=== PATIENT | female | born 1950 | race Caucasian/White ===

== ENCOUNTER 2017-05-04 15:25 | Emergency (ER) | payer OTHER ==
[~2017-05-04] VITALS: Ht 154.9 cm; Wt 92.0 kg
[~2017-05-04 15:25] MED LIST: ASPI-94 PO; CALCCHW25 PO; EFFE75CA PO; LEVO100T4 PO; LOSA25 PO; METF500 PO; TAB-TAB PO; ZOCO40TA PO
[2017-05-04 15:31] VITALS: BP 177/77; PULSE 85; RESP 18; TEMP 98.3; O2SAT 96
[2017-05-04] MEDS ORDERED: ASPI81CH37 CHEW (15:52)
[2017-05-04] MEDS ORDERED: METF500T4 PO (15:52)
[2017-05-04] MEDS ORDERED: LEVO150T7 PO (15:52)
[2017-05-04] MEDS ORDERED: MONT10TA4 PO (15:52)
[2017-05-04] MEDS ORDERED: ATOR40TA16 PO (15:52)
[2017-05-04] MEDS ORDERED: EFFE150C PO (15:52)
[2017-05-04] MEDS ORDERED: LOSA100T PO (15:52)
[2017-05-04] MEDS ORDERED: CALC1TAB12 PO (15:52)
[2017-05-04] MEDS ORDERED: PANT40TA3 PO (15:52)
[2017-05-04] MEDS ORDERED: ONETAB26 (15:52)
[2017-05-04] MEDS ORDERED: COQ-30CA2 (15:52)
[2017-05-04] MEDS ORDERED: SODIUM CHLOR 0.9% 1000 ML INJ 1,000 ML IV SCH (16:09)
[2017-05-04] MEDS ORDERED: SODIUM CHLORIDE 0.9% FLUSH 10 ML FLUSH IV FLUSH PRN (16:15)
[2017-05-04] MEDS ORDERED: MORPHINE SULFATE 4 MG/ML INJ IV PUSH ONE (16:15)
[2017-05-04] MEDS ORDERED: ONDANSETRON HCL 4 MG/2 ML VIAL IVP ONE (16:15)
[2017-05-04 16:49] VITALS: O2SAT 98
--- NOTE | 2017-05-04 16:52 | PD ---
HPI Chief Complaint: GI Complaint Time Seen by Provider: 16:09 Travel History International Travel<30 days: No Contact w/Intl Traveler<30days: No Traveled to known affect area: No History of Present Illness HPI Patient is a 67 year old female who comes in complaining of lower abdominal pain. She says that she ate some fish for lunch on Wednesday and felt like she had an upset stomach afterwards. She says Wednesday she started to have severe pain to the lower part of her abdomen. She says she is having small soft bowel movements that are cough. Color. She denies fever or chills. She denies nausea or vomiting, but says she has not been very hungry. She denies any dysuria, but says she has pain to her abdomen when she urinates. She denies any vaginal discharge. PFSH Past Medical History Asthma: Yes Blood Disorders: No Anxiety: Yes Depression: No Cardiovascular Problems: Yes High Cholesterol: Yes Diabetes: Yes Patient Takes Glucophage: Yes Diminished Hearing: No Endocrine: Yes Gastrointestinal Disorders: Yes (INCONTINENT OF URINE) GERD: Yes Genitourinary: No Hypertension: Yes Immune Disorder: No Musculoskeletal: Yes Neurologic: No Psychiatric: Yes Reproductive: No Respiratory: Yes Radiation Therapy: Yes (TTO THYROID FOR GRAVES DISEASE) Thyroid Disease: Yes (GRAVES DISEASE) ?: Not Menopausal: Yes : 0 Past Surgical History Tonsillectomy: Yes Other Surgery: Yes (TONSILECTOMY) Social History Alcohol Use: No Tobacco Use: No Substance Use: No Allergies-Medications (Allergen,Severity, Reaction): Coded Allergies: penicillin G (Unverified Allergy, Severe, RASH, 05/04/17) Reported Meds & Prescriptions Reported Meds & Active Scripts Active Reported Losartan (Losartan Potassium) 100 Mg Tab 100 Mg PO DAILY Atorvastatin (Atorvastatin Calcium) 40 Mg Tab 40 Mg PO HS Montelukast (Montelukast Sodium) 10 Mg Tab 10 Mg PO HS Metformin ER (Metformin HCl) 500 Mg Benitez 500 Mg PO DAILY With evening meal Pantoprazole (Pantoprazole Sodium) 40 Mg Tab 40 Mg PO DAILY Coq-10 (Coenzyme Q10 (Ubidecarenone)) 30 Mg Cap Calcium 500 +D (Calcium Carbonate-Cholecalciferol) 500-400 Mg-Unit Tab 1 Tab PO BID One Daily Complete (Multivitamin with Minerals) 1 Each Tablet Aspirin Low Dose (Aspirin) 81 Mg Chew 81 Mg CHEW DAILY Effexor XR 24 HR (Venlafaxine HCl) 150 Mg Cap 150 Mg PO DAILY Levothyroxine (Levothyroxine Sodium) 150 Mcg Tab 150 Mcg PO DAILY Review of Systems Except as stated in HPI: all other systems reviewed are Neg General / Constitutional: No: Fever, Chills HENT: No: Headaches, Lightheadedness Cardiovascular: No: Chest Pain or Discomfort Respiratory: No: Shortness of Breath Gastrointestinal: Positive: Abdominal Pain, Constipation, No: Nausea, Vomiting Genitourinary: No: Dysuria Musculoskeletal: No: Edema, Pain Skin: No Rash, No Change in Pigmentation Neurologic: No: Weakness, Dizziness Physical Exam Narrative GENERAL: Awake and alert, in no acute distress. SKIN: Focused skin assessment warm/dry. HEAD: Atraumatic. Normocephalic. EYES: Pupils equal and round. No scleral icterus. ENT: Mucous membranes pink and moist. NECK: Trachea midline. No JVD. CARDIOVASCULAR: Regular rate and rhythm. No murmur appreciated. RESPIRATORY: No accessory muscle use. Clear to auscultation. Breath sounds equal bilaterally. GASTROINTESTINAL: Abdomen soft, nondistended. Tender to palpation of the RUQ and RLQ. No rebound or guarding. No CVA tenderness. MUSCULOSKELETAL: No obvious deformities. No clubbing. No cyanosis. No edema. NEUROLOGICAL: Awake and alert. No obvious cranial nerve deficits. Motor grossly within normal limits. Normal speech. PSYCHIATRIC: Appropriate mood and affect; insight and judgment normal. Data Data Last Documented VS Vital Signs Date Time Temp Pulse Resp B/P (MAP) Pulse Ox O2 Delivery O2 Flow Rate FiO2 05/04/17 16:49 98 Room Air 05/04/17 15:31 98.3 85 18 177/77 (110) Orders Orders Complete Blood Count With Diff (05/04/17 16:09) Comprehensive Metabolic Panel (05/04/17 16:09) Lipase (05/04/17 16:09) Lactic Acid (05/04/17 16:09) Prothrombin Time / Inr (Pt) (05/04/17 16:09) Act Partial Throm Time (Ptt) (05/04/17 16:09) Urinalysis - C+S If Indicated (05/04/17 16:09) Ct Abd/Pel W Iv Contrast(Rout) (05/04/17 16:09) Iv Access Insert/Monitor (05/04/17 16:09) Ecg Monitoring (05/04/17 16:09) Oximetry (05/04/17 16:09) Morphine Inj (Morphine Inj) (05/04/17 16:15) Ondansetron Inj (Zofran Inj) (05/04/17 16:15) Sodium Chlor 0.9% 1000 Ml Inj (Ns 1000 M (05/04/17 16:09) Sodium Chloride 0.9% Flush (Ns Flush) (05/04/17 16:15) Urine Culture (05/04/17 16:37) Iohexol 350 Inj (Omnipaque 350 Inj) (05/04/17 17:53) Acetamin-Hydrocod 325-5 Mg ([place] 5-325 (05/04/17 18:45) Labs Laboratory Tests Test 05/04/17 16:37 05/04/17 16:42 White Blood Count 9.2 TH/MM3 Red Blood Count 4.75 MIL/MM3 Hemoglobin 13.6 GM/DL Hematocrit 39.6 % Mean Corpuscular Volume 83.3 FL Mean Corpuscular Hemoglobin 28.6 PG Mean Corpuscular Hemoglobin Concent 34.3 % Red Cell Distribution Width 13.0 % Platelet Count 184 TH/MM3 Mean Platelet Volume 10.7 FL Neutrophils (%) (Auto) 72.9 % Lymphocytes (%) (Auto) 19.8 % Monocytes (%) (Auto) 5.6 % Eosinophils (%) (Auto) 1.2 % Basophils (%) (Auto) 0.5 % Neutrophils # (Auto) 6.8 TH/MM3 Lymphocytes # (Auto) 1.8 TH/MM3 Monocytes # (Auto) 0.5 TH/MM3 Eosinophils # (Auto) 0.1 TH/MM3 Basophils # (Auto) 0.0 TH/MM3 CBC Comment DIFF FINAL Differential Comment Prothrombin Time 10.7 SEC Prothromb Time International Ratio 1.0 RATIO Activated Partial Thromboplast Time 27.8 SEC Urine Collection Type CLEAN CATCH Urine Color YELLOW Urine Turbidity CLEAR Urine pH 7.0 Urine Specific [place] 1.025 Urine Protein 100 mg/dL Urine Glucose (UA) 250 mg/dL Urine Ketones TRACE mg/dL Urine Occult Blood TRACE Urine Nitrite NEG Urine Bilirubin NEG Urine Leukocyte Esterase TRACE Urine RBC 0-3 /hpf Urine WBC 20-24 /hpf Urine WBC Clumps FEW Urine Squamous Epithelial Cells 0-5 /hpf Urine Renal Epithelial Cells 0-5 /hpf Microscopic Urinalysis Comment CULTURE INDICATED Urine Collection Time 16:37 Blood Urea Nitrogen 9 MG/DL Creatinine 0.62 MG/DL Random Glucose 225 MG/DL Total Protein 7.1 GM/DL Albumin 3.3 GM/DL Calcium Level 8.6 MG/DL Alkaline Phosphatase 91 U/L Aspartate Amino Transf (AST/SGOT) 12 U/L Alanine Aminotransferase (ALT/SGPT) 19 U/L Total Bilirubin 0.9 MG/DL Sodium Level 136 MEQ/L Potassium Level 3.7 MEQ/L Chloride Level 103 MEQ/L Carbon Dioxide Level 26.0 MEQ/L Anion Gap 7 MEQ/L Estimat Glomerular Filtration Rate 95 ML/MIN Lipase 69 U/L Lactic Acid Level 1.0 mmol/L MDM Medical Decision Making Medical Screen Exam Complete: Yes Emergency Medical Condition: Yes Medical Record Reviewed: Yes Differential Diagnosis UTI versus appendicitis versus colitis versus diverticulitis Narrative Course Patient is a 67-year-old female comes in complaining of lower abdominal pain. Exam shows right-sided abdominal tenderness on palpation. IV established, labs sent. White blood cell count is within normal limits, creatinine is within normal limits. Urinalysis shows evidence of UTI. Patient given IV fluids, pain medicine, Zofran. CT abdomen and pelvis performed shows evidence of diverticulitis. Patient did feel better after morphine, but started to have some pain again. She is given a Lortab. She'll be discharged with prescriptions for Cipro and Flagyl which will also cover her UTI. Given a prescription for Lortab. She is advised to avoid alcohol while taking the antibiotics. She is advised follow-up with her doctor. Advised to return to the ED as needed for any worsening symptoms. Diagnosis Primary Impression: Diverticulitis Qualified Codes: K57.32 - Diverticulitis of large intestine without perforation or abscess without bleeding Additional Impression: Urinary tract infection Qualified Codes: N30.00 - Acute cystitis without hematuria Patient Instructions: Diverticulitis (ED), General Instructions, Urinary Tract Infection in Women (ED) Additional Instructions: Take all of your antibiotics. Do not drink alcohol while taking antibiotics. Drink plenty of fluids. Take pain medicine as needed. Follow-up with your doctor. Return to the ED as needed for any worsening symptoms. Scripts Hydrocodone-Acetaminophen (Lortab) 5-325 Mg Tab 1 TAB PO Q6H Y for PAIN, #12 TAB 0 Refills Prov: Jennifer Herman MD 05/04/17 Ciprofloxacin (Cipro) 500 Mg Tab 500 MG PO BID for Infection for 7 Days, TAB 0 Refills Prov: Jennifer Herman MD 05/04/17 Metronidazole (Flagyl) 500 Mg Tab 500 MG PO TID for Infection for 7 Days, TAB 0 Refills Prov: Jennifer Herman MD 05/04/17 Disposition: 01 DISCHARGE HOME Condition: Stable Jennifer Herman MD May 04, 2017 16:52
[2017-05-04 16:53] LABS: GLUCOSE,URINE 250 mg/dL (NEG); KETONE, URINE TRACE mg/dL (NEG); NITRITE,URINE NEG (NEG)
[2017-05-04 16:54] LABS: BLOOD, URINE TRACE (NEG)
[2017-05-04 17:04] LABS: CHLORIDE 103 MEQ/L (98-107); POTASSIUM 3.7 MEQ/L (3.5-5.1); SODIUM (NA) 136 MEQ/L (136-145)
[2017-05-04 17:05] LABS: METHOD OF COLLECTION CLEAN CATCH; URINE COLOR YELLOW (YELLW/STRAW)
[2017-05-04 17:06] LABS: RBC, URINE 0-3 /hpf (0-3); SQUAMOUS EPITHELIAL CELL URINE 0-5 /hpf (0-5)
[2017-05-04 17:07] LABS: COMMENT (UR) CULTURE INDICATED; CULTURE IF INDICATED CULTURE INDICATED; RENAL EPITHELIAL CELLS 0-5 /hpf
[2017-05-04 17:08] LABS: ANION GAP 7 MEQ/L (5-15)
[2017-05-04 17:09] LABS: APTT (PATIENT) 27.8 SEC (24.3-30.1); BLOOD UREA NITROGEN 9 MG/DL (7-18); PROTHROMBIN TIME - PATIENT 10.7 SEC (9.8-11.6)
[2017-05-04 17:11] LABS: ALT (GPT) 19 U/L (10-53); AST (GOT) 12 U/L (15-37); GLOMERULAR FILTRATION RATE 95 ML/MIN (>89)
[2017-05-04 17:13] LABS: TOTAL BILIRUBIN ADULT 0.9 MG/DL (0.2-1.0)
[2017-05-04 17:14] LABS: ALKALINE PHOSPHATASE 91 U/L (45-117)
[2017-05-04] MEDS ORDERED: IOHEXOL 350 MG/ML 10 ML VIAL (for RAD DIAG) IVCONTRAST ONE (17:53)
--- NOTE | 2017-05-04 18:05 | RADRPT ---
EXAM DATE/TIME: 05/04/2017 17:49 [facility] COMPARISON: No previous studies available for comparison. INDICATIONS : Diffuse abdominal pain since yesterday. IV CONTRAST: 85 cc Omnipaque 350 (iohexol) IV ORAL CONTRAST: No oral contrast ingested. RADIATION DOSE: 22.19 CTDIvol (mGy) MEDICAL HISTORY : Hypertension. Hyperthyroidism. Hypercholesterolemia. SURGICAL HISTORY : Tonsillectomy. ENCOUNTER: Initial ACUITY: 2 days PAIN SCALE: 4/10 LOCATION: Bilateral abdomen TECHNIQUE: Volumetric scanning of the abdomen and pelvis was performed. Using automated exposure control and adjustment of the mA and/or kV according to patient size, radiation dose was kept as low as reasonably achievable to obtain optimal diagnostic quality images. DICOM format image data is av ailable electronically for review and comparison. FINDINGS: LOWER LUNGS: Clear lungs LIVER: Homogeneous density without lesion. There is no dilation of the biliary tree. No calcifi ed gallstones. Gallbladder seen as a luminal structure wall thickening SPLEEN: Normal size withou t lesion. PANCREAS: Within normal limits. KIDNEYS: Normal in size and shape. There is no stone or hydronephrosis. 2.7 cm cyst upper pole l eft kidney ADRENAL GLANDS: Within normal limits. VASCULAR: There is no aortic aneurysm. BOWEL/MESENTERY: There is long segment proximal to mid sigmoid colon bowel wall thickening and pe ricolonic inflammation in the pericolonic fat. Findings are consistent with colitis most likely diver ticular basis with a few distal descending and proximal sigmoid diverticuli appreciated. ABDOMINAL WALL: Within normal limits. RETROPERITONEUM: There is no lymphadenopathy. BLADDER: No wall thickening or mass. REPRODUCTIVE: Within normal limits. INGUINAL: There is no lymphadenopathy or hernia. MUSCULOSKELETAL: Within normal limits for patient age. Facet arthritic changes lower lumbar spine L5-S1 and L4-5 CONCLUSION: Long segment rostral to mid sigmoid colon colitis with bowel wall thickening and bernie colonic inflammatory change without free air or free fluid or abscess formation. Findings are most co nsistent with diverticulitis. Peterson Santoyo MD on May 04, 2017 at 17:58 Board Certified Radiologist. This report was verified electronically.
[2017-05-04 18:26] LABS: AUTOMATED NEUTROPHIL # 6.8 TH/MM3 (1.8-7.7); BASOPHIL % 0.5 % (0.0-2.0); EOSINOPHIL # 0.1 TH/MM3 (0-0.4); EOSINOPHIL % 1.2 % (0.0-4.0); HEMATOCRIT 39.6 % (35.0-46.0); HEMO FLAGS DIFF FINAL; LYMPH % 19.8 % (9.0-44.0); LYMPHOCYTE # 1.8 TH/MM3 (1.0-4.8); MEAN CELL VOLUME 83.3 FL (80.0-100.0); MEAN CORPUSCULAR HEMOGLOBIN 28.6 PG (27.0-34.0); MEAN CORPUSCULAR HGB CONC 34.3 % (32.0-36.0); MONO % 5.6 % (0.0-8.0); NEUT % 72.9 % (16.0-70.0); PLATELET COUNT 184 TH/MM3 (150-450); RED BLOOD COUNT 4.75 MIL/MM3 (4.00-5.30); WHITE BLOOD COUNT 9.2 TH/MM3 (4.0-11.0)
[2017-05-04] MEDS ORDERED: HYDR-3533 PO (18:44)
[2017-05-04] MEDS ORDERED: METR-1 PO (18:44)
[2017-05-04] MEDS ORDERED: CIPR-9 PO (18:44)
[2017-05-04] MEDS ORDERED: ACETAMINOPHEN/HYDROcodone 325 MG/5 MG TAB PO ONE (18:45)
[2017-05-04 19:24] VITALS: BP 160/70
[2017-05-04 19:25] VITALS: RESP 18
== END 2017-05-04 19:33 | disposition home or self-care (01) ==
LOC: PHED 15:25
DX: K57.32 Diverticulitis of large intestine without perforation or abscess without bleeding (principal); N30.00 Acute cystitis without hematuria; E05.00 Thyrotoxicosis with diffuse goiter without thyrotoxic crisis or storm; E11.9 Type 2 diabetes mellitus without complications; I10 Essential (primary) hypertension; Z88.0 Allergy status to penicillin
CPT/HCPCS: 74177; 80053; 81001; 83605; 83690; 85025; 85610; 85730; 87086; 96374; 96375; 99285; J2270; J2405; J7030; Q9967

== ENCOUNTER → 2017-08-19 | Day surgery (SDC) | payer OTHER ==
[~2017-08-19] VITALS: Ht 152.4 cm; Wt 94.5 kg
[~2017-08-19] MED LIST changes: -ASPI-94 PO; +ASPI81CH6 CHEW; +ATOR40TA16 PO; +ATROPINE SULFATE 1% OPHT SOLN 2 ML BTL ONE; +BALANCED SALT SOLN OPHT IRRIG 15 ML BTL ONE; +CALC1TAB12 PO; -CALCCHW25 PO; +CHLORHEXIDINE GLUCONATE 2 % 1 PACK (2 CLOTHS) TOPICAL PRN; +CIPR-9 PO; +COQ-30CA2; +CYCLOPENTOLATE HCL 1% OPHT SOLN 2 ML BTL ONE; +DEXAMETHASONE SOD PHOS 4 MG/ML VIAL ONE; +DO NOT ADM ANY ANTICOAGULANT DRUGS PRN; +EFFE150C PO; -EFFE75CA PO; +EPINEPHrine HCL (1:1000) 1 MG/ML VIAL ONE; +HYDR-3516 PO; +HYDR-3533 PO; +LACTATED RINGER'S 1000 ML IV PRN; +LANTUS2P; -LEVO100T4 PO; +LEVO150T7 PO; +LOSA100T PO; -LOSA25 PO; -METF500 PO; +METF500T4 PO; +METOPROLOL TARTRATE 25 MG TAB PO PRN; +METR-1 PO; +MONT10TA4 PO; +ONDANSETRON HCL 4 MG/2 ML VIAL IM PRN; +ONDANSETRON HCL 4 MG/2 ML VIAL IV PUSH PRN; +ONETAB26; +PANT40TA3 PO; +POVIDONE IODINE 5% (ANTISEPSIS KIT) 4 APPLICATIONS EACH NARE PRN; +SODIUM CHLORID 0.9% 500 ML IV PRN; +STERILE WATER FOR INJECTION 20 ML VIAL ONE; -TAB-TAB PO; +TOBRAMYCIN/DEXAMETHASONE OPTH OINT 3.5 GM TUBE ONE; +TRIAMCINOLONE ACETONIDE/PF 40 MG/ML OPTH VIAL ONE; +TROPICAMIDE 1% OPHT SOLN 15 ML BTL ONE; -ZOCO40TA PO; +ceFAZolin INJ 1,000 MG VIAL ONE
[2017-08-19 07:16] LABS: AUTOMATED NEUTROPHIL # 3.6 TH/MM3 (1.8-7.7); BASOPHIL # 0.1 TH/MM3 (0-0.2); EOSINOPHIL # 0.1 TH/MM3 (0-0.4); EOSINOPHIL % 2.3 % (0.0-4.0); HEMATOCRIT 36.5 % (35.0-46.0); HEMO FLAGS DIFF FINAL; LYMPH % 27.5 % (9.0-44.0); LYMPHOCYTE # 1.6 TH/MM3 (1.0-4.8); MEAN CORPUSCULAR HEMOGLOBIN 28.8 PG (27.0-34.0); MEAN CORPUSCULAR HGB CONC 34.3 % (32.0-36.0); MONO % 8.3 % (0.0-8.0); NEUT % 60.9 % (16.0-70.0); PLATELET COUNT 223 TH/MM3 (150-450); RED BLOOD COUNT 4.34 MIL/MM3 (4.00-5.30); RED CELL DISTRIBUTION WIDTH 14.3 % (11.6-17.2); WHITE BLOOD COUNT 5.9 TH/MM3 (4.0-11.0)
[2017-08-19] MEDS: ATROPINE SULFATE 1% OPHT SOLN 5 ML BTL LEFT EYE SCH ×2 (07:28→07:45)
[2017-08-19] MEDS: CYCLOPENTOLATE HCL 1% OPHT SOLN 2 ML BTL LEFT EYE SCH ×2 (07:28→07:45)
[2017-08-19] MEDS: PHENYLEPHRINE HCL 2.5% OPTH SOLN 2 ML BTL LEFT EYE SCH ×2 (07:28→07:45)
[2017-08-19] MEDS: TROPICAMIDE 1% OPHT SOLN 15 ML BTL LEFT EYE SCH ×2 (07:28→07:45)
[2017-08-19 10:35] VITALS: BP 118/65; PULSE 86; RESP 16; TEMP 98; O2SAT 97
--- NOTE | 2017-08-19 11:56 | MP ---
cc: LIAT MORENO M.D. DATE OF SURGERY: 08/19/2017 PREOPERATIVE DIAGNOSIS Visually significant epiretinal membrane with macular pucker, left eye. POSTOPERATIVE DIAGNOSIS Visually significant epiretinal membrane with macular pucker, left eye. PROCEDURE 23 gauge trans pars plana vitrectomy with membranectomy and air-fluid exchange, left eye. SURGEON Dr. Liat Moreno. ANESTHESIA General laryngeal mask anesthesia. INDICATION Ms. Hernandes is a 67-year-old woman with a history of a retinal detachment repaired in 2016 with vitrectomy and scleral buckle. She developed an epiretinal membrane following her repair temporal to the macula which was causing striae and traction through the macula and distortion. She wished to proceed electively with a vitrectomy and membrane removal to try and improve the quality of her vision. The risks and benefits of surgery were discussed with the patient and informed consent was obtained. No guarantee was made as to visual outcome. PROCEDURE She was brought to [facility] operating [facility]. The left eye was identified as the operative site. She was put under general anesthesia using a laryngeal mask with appropriate anesthesia monitoring devices. The left eye was prepped and draped in the usual sterile fashion. At this point an appropriate time-out was called with the surgical team agreeing to the planned procedure and surgical site. The microscope was brought around and adjusted. A lid speculum was placed. The trocar cannulas were placed 3-1/2 mm posterior to the limbus after first displacing the conjunctivae with beveled entrance. First one was placed at approximately 3 o'clock, verified to be in the posterior chamber and then an infusion cannula was affixed to it. Two additional trocar cannulas were placed in similar fashion at approximately 10 and 2 o'clock. Using the flat contact lens for visualization the eye was entered with the Endo-eliminator light pipe and Brett membrane scraper. The membrane was approached from the superotemporal edge and peeled downward and laterally. It was very adherent to the retina but was able to be removed using both the Brett membrane scraper and the soft tipped linear extrusion needle on aspiration. The retina tented up just a little bit from the traction pulling off of the membrane, so as a precaution some light laser was placed around the area using the endolaser light probe and power of 150 milliwatts and 0.1-second exposure, 28 laser spots were placed around that area. The fundus was inspected with the indirect ophthalmoscope and no retinal breaks were found. Therefore, using the BIOM wide angle viewing system an air-fluid exchange was performed using the soft tipped linear extrusion needle. The plugs were placed back in the cannulas and the cannulas were removed one by one with tamponade of the site with a cotton swab leaving the eye with good pressure and no visible air leaks. Light diathermy was applied over the conjunctival wounds associated with the cannulas. Atropine drops were placed on the cornea followed by subconjunctival injection of Ancef 125 mg in half cc and Decadron 2 mg in half cc. The lid speculum was removed and the patient was undraped. TobraDex ointment was placed on the cornea and then the left eye was patched and shielded. The patient had the laryngeal mass removed in the room and was returned to recovery in good condition laying on her right side. When awake and alert she will be asked to begin face-down positioning. MD PRESTON Munoz/CORINNA /9:17 AM /11:20 AM
--- NOTE | 2017-08-19 14:03 | EKG ---
Date Performed: 08/19/2017 Time Performed: 07:00:12 PTAGE: 67 years EKG: Sinus rhythm NORMAL ECG Compared to prior tracing no significant change PREVIOUS TRACING : 07/02/2016 08.00 DOCTOR: Princess Kahn Interpretating Date/Time 08/19/2017 14:02:03
== END | disposition home or self-care (01) ==
LOC: HSDC 06:04
PROVIDERS: ATTEND Ophthalmology
DX: H35.372 Puckering of macula, left eye (principal); I10 Essential (primary) hypertension; E11.9 Type 2 diabetes mellitus without complications; Z79.4 Long term (current) use of insulin
CPT/HCPCS: 00145; 67041; 82948; 85025; 93005; J0171; J0690; J1100; J7120; J3300

== ENCOUNTER 2017-09-05 17:39 | Emergency (ER) | payer OTHER ==
[~2017-09-05] VITALS: Ht 152.4 cm; Wt 95.0 kg
[~2017-09-05 17:39] MED LIST changes: -ATROPINE SULFATE 1% OPHT SOLN 2 ML BTL ONE; -BALANCED SALT SOLN OPHT IRRIG 15 ML BTL ONE; -CHLORHEXIDINE GLUCONATE 2 % 1 PACK (2 CLOTHS) TOPICAL PRN; -CIPR-9 PO; -CYCLOPENTOLATE HCL 1% OPHT SOLN 2 ML BTL ONE; -DEXAMETHASONE SOD PHOS 4 MG/ML VIAL ONE; -DO NOT ADM ANY ANTICOAGULANT DRUGS PRN; -EPINEPHrine HCL (1:1000) 1 MG/ML VIAL ONE; -HYDR-3533 PO; -LACTATED RINGER'S 1000 ML IV PRN; -METOPROLOL TARTRATE 25 MG TAB PO PRN; -METR-1 PO; -ONDANSETRON HCL 4 MG/2 ML VIAL IM PRN; -ONDANSETRON HCL 4 MG/2 ML VIAL IV PUSH PRN; -POVIDONE IODINE 5% (ANTISEPSIS KIT) 4 APPLICATIONS EACH NARE PRN; -SODIUM CHLORID 0.9% 500 ML IV PRN; -STERILE WATER FOR INJECTION 20 ML VIAL ONE; -TOBRAMYCIN/DEXAMETHASONE OPTH OINT 3.5 GM TUBE ONE; -TRIAMCINOLONE ACETONIDE/PF 40 MG/ML OPTH VIAL ONE; -TROPICAMIDE 1% OPHT SOLN 15 ML BTL ONE; -ceFAZolin INJ 1,000 MG VIAL ONE
[2017-09-05 17:43] VITALS: BP 150/74; PULSE 91; RESP 16; TEMP 98; O2SAT 96
[2017-09-05] MEDS ORDERED: AMLO5TAB2 PO (17:58)
[2017-09-05] MEDS ORDERED: GLIP1TAB60 PO (17:58)
[2017-09-05] MEDS ORDERED: SODIUM CHLORIDE 0.9% FLUSH 10 ML FLUSH IV FLUSH PRN (18:00)
[2017-09-05 18:11] VITALS: O2SAT 96
[2017-09-05 18:12] LABS: AUTOMATED NEUTROPHIL # 5.1 TH/MM3 (1.8-7.7); BASOPHIL # 0.1 TH/MM3 (0-0.2); BASOPHIL % 0.8 % (0.0-2.0); EOSINOPHIL # 0.2 TH/MM3 (0-0.4); EOSINOPHIL % 2.1 % (0.0-4.0); HEMATOCRIT 39.9 % (35.0-46.0); HEMOGLOBIN 13.2 GM/DL (11.6-15.3); LYMPH % 25.5 % (9.0-44.0); MEAN CELL VOLUME 84.2 FL (80.0-100.0); MEAN CORPUSCULAR HEMOGLOBIN 27.8 PG (27.0-34.0); MEAN PLATELET VOLUME 9.3 FL (7.0-11.0); MONO % 3.9 % (0.0-8.0); MONOCYTE # 0.3 TH/MM3 (0-0.9); NEUT % 67.7 % (16.0-70.0); PLATELET COUNT 226 TH/MM3 (150-450); RED BLOOD COUNT 4.74 MIL/MM3 (4.00-5.30); RED CELL DISTRIBUTION WIDTH 13.5 % (11.6-17.2); WHITE BLOOD COUNT 7.7 TH/MM3 (4.0-11.0)
[2017-09-05 18:25] LABS: CHLORIDE 104 MEQ/L (98-107); SODIUM (NA) 138 MEQ/L (136-145)
[2017-09-05 18:28] LABS: CALCIUM 8.9 MG/DL (8.5-10.1)
[2017-09-05 18:29] LABS: ALBUMIN 3.4 GM/DL (3.4-5.0); BICARBONATE 25.1 MEQ/L (21.0-32.0); BLOOD UREA NITROGEN 12 MG/DL (7-18); GLUCOSE,RANDOM 178 MG/DL (74-106)
[2017-09-05 18:32] LABS: ALT (GPT) 22 U/L (10-53); AST (GOT) 19 U/L (15-37); CREATININE 0.67 MG/DL (0.50-1.00); GLOMERULAR FILTRATION RATE 87 ML/MIN (>89)
[2017-09-05 18:34] LABS: TOTAL BILIRUBIN ADULT 0.4 MG/DL (0.2-1.0); TOTAL PROTEIN 7.4 GM/DL (6.4-8.2)
[2017-09-05 18:35] LABS: ALKALINE PHOSPHATASE 117 U/L (45-117)
[2017-09-05 18:37] LABS: TROPONIN I LESS THAN 0.02 NG/ML (0.02-0.05)
--- NOTE | 2017-09-05 18:46 | RADRPT ---
EXAM DATE/TIME: 09/05/2017 18:19 [facility] COMPARISON: No previous studies available for comparison. INDICATIONS : Dizziness for three days. RADIATION DOSE: 62.06 CTDIvol (mGy) MEDICAL HISTORY : Hypercholesterolemia. Hyperthyroidism. Hypertension.Diabetes. SURGICAL HISTORY : Tonsillectomy. ENCOUNTER: Initial ACUITY: 3 days PAIN SCALE: 0/10 LOCATION: cranial TECHNIQUE: Multiple contiguous axial images were obtained of the head. Using automated exposure control and adjustment of the mA and/or kV according to patient size, radiation dose was kept as low as reasonably achievable to obtain optimal diagnostic quality images. DICOM format image data is av ailable electronically for review and comparison. FINDINGS: There is no evidence for intracranial hemorrhage, mass effect, mass lesions, edema, or extra-axial fl uid collections. The visualized bony structures appear intact. The ventricles are normal size for t he patient's age. There are no signs of acute infarction for technique. There is an exophytic scalp nodule in the left frontal region measures 1.0 cm in size. CONCLUSION: Exophytic scalp nodule on the left side and no evidence for intracranial hemorrhage. Bethany Giordano MD on September 05, 2017 at 18:43 Board Certified Radiologist. This report was verified electronically.
[2017-09-05] MEDS ORDERED: MECL-62 PO (18:47)
--- NOTE | 2017-09-05 18:50 | PD ---
HPI Chief Complaint: Dizziness Time Seen by Provider: 18:34 Travel History International Travel<30 days: No Contact w/Intl Traveler<30days: No Traveled to known affect area: No History of Present Illness HPI FOR PAST 2 DAYS H/O ROOM SPINNING EPISODES THAT ARE NOT IMPROVING OR DISAPPEARING, PT DENIES ANY ASSOC FACTORS OF STROUD/VISUAL CHANGES/CP/ABDPAIN/ BACKPAIN/N/V/D/ AT THIS TIME.... DENIES ALLEVIATING/AGGRAVATING FACTORS PFSH Past Medical History Asthma: Yes Blood Disorders: No Anxiety: Yes Depression: No Cancer: No Cardiovascular Problems: Yes High Cholesterol: Yes Diabetes: Yes Patient Takes Glucophage: Yes Diminished Hearing: No Endocrine: Yes Gastrointestinal Disorders: Yes (INCONTINENT OF URINE) GERD: Yes Genitourinary: No Hypertension: Yes Immune Disorder: No Musculoskeletal: Yes Neurologic: No Psychiatric: Yes Reproductive: No Respiratory: Yes Radiation Therapy: Yes (TTO THYROID FOR GRAVES DISEASE) Thyroid Disease: Yes (GRAVES DISEASE) Menopausal: Yes : 0 Past Surgical History Abdominal Surgery: No AICD: No Cardiac Surgery: No Eye Surgery: Yes (08/19, ON RETINA) Genitourinary Surgery: No Gynecologic Surgery: No Joint Replacement: Yes (r knee) Pacemaker: No Thoracic Surgery: No Tonsillectomy: Yes Other Surgery: Yes (TONSILECTOMY) Social History Alcohol Use: No Tobacco Use: No Substance Use: No Allergies-Medications (Allergen,Severity, Reaction): Coded Allergies: penicillin G (Unverified Allergy, Severe, RASH, 09/05/17) Reported Meds & Prescriptions Reported Meds & Active Scripts Active Reported Lantus Inj (Insulin Glargine) 100 Unit/Ml Inj 12 HS Losartan (Losartan Potassium) 100 Mg Tab 100 Mg PO DAILY Atorvastatin (Atorvastatin Calcium) 40 Mg Tab 40 Mg PO HS Montelukast (Montelukast Sodium) 10 Mg Tab 10 Mg PO HS Metformin ER (Metformin HCl) 500 Mg Bentiez 500 Mg PO DAILY With evening meal Pantoprazole (Pantoprazole Sodium) 40 Mg Tab 40 Mg PO DAILY Coq-10 (Coenzyme Q10 (Ubidecarenone)) 30 Mg Cap Calcium 500 +D (Calcium Carbonate-Cholecalciferol) 500-400 Mg-Unit Tab 1 Tab PO BID One Daily Complete (Multivitamin with Minerals) 1 Each Tablet Aspirin Low Dose (Aspirin) 81 Mg Chew 81 Mg CHEW DAILY Effexor XR 24 HR (Venlafaxine HCl) 150 Mg Cap 150 Mg PO DAILY Levothyroxine (Levothyroxine Sodium) 150 Mcg Tab 150 Mcg PO DAILY Review of Systems Except as stated in HPI: all other systems reviewed are Neg General / Constitutional: No: Fever Eyes: No: Visual changes HENT: Positive: Vertigo Cardiovascular: No: Chest Pain or Discomfort Respiratory: No: Shortness of Breath Gastrointestinal: No: Abdominal Pain Genitourinary: No: Dysuria Musculoskeletal: No: Pain Skin: No Rash Neurologic: No: Weakness Psychiatric: No: Depression Endocrine: No: Polydipsia Hematologic/Lymphatic: No: Easy Bruising Physical Exam Narrative GENERAL: SKIN: Warm and dry. HEAD: Atraumatic. Normocephalic. EYES: Pupils equal and round. No scleral icterus. No injection or drainage...LATERAL NYSTAGMUS FATIGUABLE WITHOUT ROTARY/VERTICAL COMPONENT.... ENT: No nasal bleeding or discharge. Mucous membranes pink and moist. NECK: Trachea midline. No JVD. CARDIOVASCULAR: Regular rate and rhythm. RESPIRATORY: No accessory muscle use. Clear to auscultation. Breath sounds equal bilaterally. GASTROINTESTINAL: Abdomen soft, non-tender, nondistended. MUSCULOSKELETAL: Extremities without clubbing, cyanosis, or edema. No obvious deformities. NEUROLOGICAL: Awake and alert. No obvious cranial nerve deficits. Motor grossly within normal limits. Five out of 5 muscle strength in the arms and legs. Normal speech. PSYCHIATRIC: Appropriate mood and affect; insight and judgment normal. Data Data Last Documented VS Vital Signs Date Time Temp Pulse Resp B/P (MAP) Pulse Ox O2 Delivery O2 Flow Rate FiO2 09/05/17 18:11 96 09/05/17 17:43 98.0 91 16 150/74 (99) Orders Orders Electrocardiogram (09/05/17 17:59) Complete Blood Count With Diff (09/05/17 17:59) Comprehensive Metabolic Panel (09/05/17 17:59) Troponin I (09/05/17 17:59) Thyroid Stimulating Hormone (09/05/17 17:59) Urinalysis - C+S If Indicated (09/05/17 17:59) Chest, Single Ap (09/05/17 17:59) Ct Brain W/O Iv Contrast(Rout) (09/05/17 17:59) Blood Glucose (09/05/17 17:59) Ecg Monitoring (09/05/17 17:59) Iv Access Insert/Monitor (09/05/17 17:59) Oximetry (09/05/17 17:59) Sodium Chloride 0.9% Flush (Ns Flush) (09/05/17 18:00) Labs Laboratory Tests Test 09/05/17 18:05 White Blood Count 7.7 TH/MM3 Red Blood Count 4.74 MIL/MM3 Hemoglobin 13.2 GM/DL Hematocrit 39.9 % Mean Corpuscular Volume 84.2 FL Mean Corpuscular Hemoglobin 27.8 PG Mean Corpuscular Hemoglobin Concent 33.0 % Red Cell Distribution Width 13.5 % Platelet Count 226 TH/MM3 Mean Platelet Volume 9.3 FL Neutrophils (%) (Auto) 67.7 % Lymphocytes (%) (Auto) 25.5 % Monocytes (%) (Auto) 3.9 % Eosinophils (%) (Auto) 2.1 % Basophils (%) (Auto) 0.8 % Neutrophils # (Auto) 5.1 TH/MM3 Lymphocytes # (Auto) 2.0 TH/MM3 Monocytes # (Auto) 0.3 TH/MM3 Eosinophils # (Auto) 0.2 TH/MM3 Basophils # (Auto) 0.1 TH/MM3 CBC Comment DIFF FINAL Differential Comment Blood Urea Nitrogen 12 MG/DL Creatinine 0.67 MG/DL Random Glucose 178 MG/DL Total Protein 7.4 GM/DL Albumin 3.4 GM/DL Calcium Level 8.9 MG/DL Alkaline Phosphatase 117 U/L Aspartate Amino Transf (AST/SGOT) 19 U/L Alanine Aminotransferase (ALT/SGPT) 22 U/L Total Bilirubin 0.4 MG/DL Sodium Level 138 MEQ/L Potassium Level 3.7 MEQ/L Chloride Level 104 MEQ/L Carbon Dioxide Level 25.1 MEQ/L Anion Gap 9 MEQ/L Estimat Glomerular Filtration Rate 87 ML/MIN Troponin I LESS THAN 0.02 NG/ML Thyroid Stimulating Hormone 3rd Gen 8.290 uIU/ML [facility] Medical Decision Making Medical Screen Exam Complete: Yes Emergency Medical Condition: Yes Medical Record Reviewed: Yes Differential Diagnosis ANEMIA V ICH V PNA V ELECTROLYTE ABNL V VERTIGO Narrative Course CT NEG FOR ICH OR BRAIN MASS. CXR NEG PNA/PTX, CBC NEG FOR ANEMIA, NORMAL ELECTROLYTES. NORMAL LIVER/KIDNEY/PANCREAS FUNCTIONS Diagnosis Primary Impression: Vertigo Referrals: Yves Raza MD FOR FURTHER CARE OF YOUR VERTIGO Patient Instructions: Benign Paroxysmal Positional Vertigo (ED), General Instructions Scripts Meclizine (Meclizine) 25 Mg Tab 25 MG PO TID Y for VERTIGO, #15 TAB 0 Refills Prov: Kole Woodruff MD 09/05/17 Disposition: 01 DISCHARGE HOME Condition: Stable Kole Woodruff MD Sep 05, 2017 18:50
--- NOTE | 2017-09-05 18:52 | RADRPT ---
EXAM DATE/TIME: 09/05/2017 18:10 [facility] COMPARISON: CHEST PA & LAT, April 05, 2014, 15:43. INDICATIONS : Dizzy, nausea MEDICAL HISTORY : Diabetes mellitus type II. Hypertension SURGICAL HISTORY : None. ENCOUNTER: Initial ACUITY: 3 days PAIN SCORE: 0/10 LOCATION: Bilateral chest FINDINGS: The lungs are clear without infiltrate, nodule, or mass. There is no appreciable pleural effusion fo r technique. Heart and mediastinum are unremarkable. CONCLUSION: No acute cardiopulmonary disease. Bethany Giordano MD on September 05, 2017 at 18:46 Board Certified Radiologist. This report was verified electronically.
[2017-09-05] MEDS ORDERED: MECLIZINE HCL 25 MG TAB PO ONE (19:00)
[2017-09-05 19:03] VITALS: BP 146/76; PULSE 81; RESP 18; O2SAT 98
--- NOTE | 2017-09-05 21:48 | EKG ---
Date Performed: 09/05/2017 Time Performed: 18:07:07 PTAGE: 67 years EKG: Sinus rhythm NORMAL ECG No significant change from prior electrocardiogram. PREVIOUS TRACING : 08/19/2017 07.00 DOCTOR: Mango Tim Interpretating Date/Time 09/05/2017 21:48:00
== END 2017-09-05 19:28 | disposition home or self-care (01) ==
LOC: PHED 17:39
DX: R42 Dizziness and giddiness (principal); J45.909 Unspecified asthma, uncomplicated; E78.00 Pure hypercholesterolemia, unspecified; E11.9 Type 2 diabetes mellitus without complications; I10 Essential (primary) hypertension; E05.00 Thyrotoxicosis with diffuse goiter without thyrotoxic crisis or storm; K21.9 Gastro-esophageal reflux disease without esophagitis; Z79.82 Long term (current) use of aspirin; Z79.84 Long term (current) use of oral hypoglycemic drugs
CPT/HCPCS: 70450; 71010; 80053; 84443; 84484; 85025; 93005; 99285